=== PATIENT | female | born 1995 | race African-American/Black ===

== ENCOUNTER 2018-11-11 18:15 | Inpatient (IN) ==
[2018-11-11 19:45] LABS: Apearance,Urine Slightly Hazy (Clear); Bacteria,Urine Occasional /HPF (Few); Bilirubin,Urine Negative (Negative); Blood, Urine Negative (Negative); Glucose,Urine (UA) Negative (Negative); Ketones,Urine 5 mg/dL (Negative); Mucus,Urine Occasional /LPF (Occasional); Nitrite,Urine Negative (Negative); Protein,Urine Negative; RBC,Urine 9 /HPF (0-4); Squamous Epithelial Cell,Urine Occasional /HPF (0-10); Urine Color Yellow (Yellow); Urine Specific Gravity 1.012 (1.001-1.035); Urine Urobilinogen < 2.0 EU/DL (0.2-1.0); WBC,Urine 46 /HPF (0-6)
[2018-11-11 21:07] LABS: Barbiturates Screen,Urine Negative (Negative); Benzodiazepines Screen,Urine Negative (Negative); Cannabinoid Screen,Urine Negative (Negative); Opiate Screen,Urine Negative (Negative); Phencyclidine Screen,Urine Negative (Negative)
[2018-11-11] MEDS ORDERED: BUTORPHANOL 2 MG/ML VIAL IM PRN (21:09)
[2018-11-11] MEDS ORDERED: ONDANSETRON 4 MG/2 ML VIAL IM PRN (21:10)
[2018-11-11] MEDS ORDERED: BUTORPHANOL 1 MG/ML VIAL IM PRN (22:05)
[2018-11-11] MEDS ORDERED: CITRIC ACID/SODIUM CITRATE 30 ML UDCUP PO ONE (23:20)
[2018-11-11] MEDS ORDERED: FAMOTIDINE 20 MG/2 ML VIAL IV ONE (23:20)
[2018-11-11] MEDS ORDERED: LACTATED RINGERS 1,000 ML IV ONE (23:20)
[2018-11-11] MEDS ORDERED: NALOXONE 0.4 MG/ML VIAL IV PRN (23:20)
[2018-11-11] MEDS ORDERED: diphenhydrAMINE 50 MG/1 ML VIAL IV PRN (23:20)
[2018-11-11] MEDS ORDERED: ePHEDrine 50 MG/ML AMP IV PRN (23:20)
[2018-11-11] MEDS: LACTATED RINGERS 1,000 ML IV SCH (23:30)
[2018-11-11] MEDS ORDERED: OXYTOCIN/LR 20 UNIT/1,000 ML BAG IV SCH (23:30)
[2018-11-11] MEDS ORDERED: fentaNYL 2 MCG/ROPIV 0.2% EPID 100 ML EPIDURAL SCH (23:30)
[2018-11-11 23:35] LABS: Basophils % 0.4 % (0.0-0.8); Eosinophils # 0.1 10*3/uL (0.0-0.87); Eosinophils % 1.2 % (0.00-10.9); Hematocrit 30.9 VOL% (35.7-47.0); Hemoglobin 9.9 GM/DL (12.0-16.0); Immature Granulocytes % 1.3 %; Immature Granulocytes Absolute 0.14 #; Lymphocytes # 1.7 10*3/uL (1.4-4.0); Lymphocytes % 16.1 % (21.3-54.2); Mean Corpuscular Volume 78.2 FL (87-102); Mean Platelet Volume 12.7 FL (9.6-12.0); Monocytes % 9.3 % (1.7-12.7); Neutrophils % 71.7 % (38.7-73.9); Platelet Count 311 T/CUMM (130-400); Red Blood Count 3.95 MC/CUMM (3.8-5.5); Red Cell Distribution Width 16.9 % (9.3-17.3); White Blood Count 10.5 T/CUMM (4-12)
[2018-11-11 23:55] LABS: Albumin 2.6 G/DL (3.4-5.0); Bilirubin,Total 0.6 MG/DL (0.2-1.0); Calcium 9.1 MG/DL (8.5-10.1); Osmolality,Calculated 271.7 MOS/KG (273-304); Total Protein 7.4 G/DL (6.4-8.3); Uric Acid 4.3 MG/DL (2.6-6.0)
[2018-11-11] MEDS ORDERED: miSOPROStol 200 MCG TABLET ONE (23:59)
[2018-11-12] MEDS: LACTATED RINGERS 1,000 ML IV SCH (00:35)
[2018-11-12 00:53] LABS: HIV Antigen/Antibody Result Nonreactive (Nonreactive); Hepatitis B Surface Ag Quant < 0.10 Index; Hepatitis B Surface Ag Result Negative (Negative)
[2018-11-12] MEDS ORDERED: METHYLERGONOVINE 0.2 MG/1 ML AMP ONE (02:48)
[2018-11-12] MEDS: AMPICILLIN INJ 2,000 MG in SODIUM CHLORIDE 0.9% 100 ML IV SCH ×2 (05:42)
[2018-11-12 06:16] LABS: Cord Arterial Blood HCO3 24.7 MMOL/L
[2018-11-12 06:21] LABS: Cord Venous Blood HCO3 22.8 MMOL/L; Cord Venous Blood PO2 30.6
[2018-11-12] MEDS ORDERED: IBUPROFEN 800 MG TABLET PO PRN (09:28)
[2018-11-12] MEDS ORDERED: HYDROCORTISONE 2.5% RECTAL CREAM 30 GM TUBE TOP PRN (09:28)
[2018-11-12] MEDS ORDERED: RHO(D) IMMUNE GLOBULIN 300 MCG SYRINGE IM ONE (09:28)
[2018-11-12] MEDS ORDERED: oxyCODONE/ACETAMINOPHEN 5-325 MG TABLET PO PRN ×2 (09:28)
[2018-11-12] MEDS ORDERED: BISACODYL 10 MG SUPP RECTAL PRN (09:28)
[2018-11-12] MEDS ORDERED: BENZOCAINE 20%/MENTHOL 0.5% SPRAY 56 GM CAN TOP PRN (09:28)
[2018-11-12] MEDS ORDERED: WITCH HAZEL PADS 100/JAR TOP PRN (09:28)
[2018-11-12] MEDS ORDERED: DIPH/TET/ACEL PERT BOOSTER VACCINE 0.5 ML VIAL IM ONE (09:28)
[2018-11-12] MEDS ORDERED: MEASLES/MUMPS/RUBELLA VACCINE 0.5 ML VIAL SUBCUT ONE (09:28)
[2018-11-12] MEDS ORDERED: LANOLIN 50% CREAM 0.3 OZ TUBE TOP PRN (09:28)
[2018-11-12] MEDS ORDERED: OXYTOCIN/LR 20 UNIT/1,000 ML BAG IV ONE (09:28)
[2018-11-12] MEDS ORDERED: ACETAMINOPHEN 325 MG TABLET PO PRN (09:28)
[2018-11-12] MEDS ORDERED: ACETAMINOPHEN/CODEINE 120-12 MG/5 ML 12.5 ML UDCUP PO PRN (09:54)
[2018-11-12] MEDS: IBUPROFEN 100 MG/5 ML UDCUP PO PRN (10:18)
[2018-11-12] MEDS ORDERED: DOCUSATE SODIUM 100 MG CAPSULE PO SCH (21:00)
[2018-11-12] MEDS: DOCUSATE SODIUM 100 MG/10 ML UDCUP PO SCH (21:02)
[2018-11-13 05:32] LABS: Basophils # 0.1 10*3/uL (0.0-0.2); Basophils % 0.5 % (0.0-0.8); Eosinophils # 0.3 10*3/uL (0.0-0.87); Eosinophils % 2.3 % (0.00-10.9); Hematocrit 25.6 VOL% (35.7-47.0); Hemoglobin 8.1 GM/DL (12.0-16.0); Immature Granulocytes % 1.2 %; Immature Granulocytes Absolute 0.13 #; Lymphocytes # 2.1 10*3/uL (1.4-4.0); Lymphocytes % 19.6 % (21.3-54.2); Mean Corpuscular HGB Conc 31.6 GM/DL (32-36); Mean Platelet Volume 13.4 FL (9.6-12.0); Monocytes % 9.1 % (1.7-12.7); Neutrophils % 67.3 % (38.7-73.9); Platelet Count 287 T/CUMM (130-400); Red Blood Count 3.28 MC/CUMM (3.8-5.5); Red Cell Distribution Width 17.3 % (9.3-17.3); White Blood Count 10.8 T/CUMM (4-12)
[2018-11-13] MEDS: FERROUS SULFATE 325 MG TABLET PO SCH ×2 (09:54→20:50)
[2018-11-13] MEDS: DOCUSATE SODIUM 100 MG/10 ML UDCUP PO SCH ×2 (09:54→20:50)
[2018-11-13] MEDS: IBUPROFEN 100 MG/5 ML UDCUP PO PRN (15:50)
[2018-11-14] MEDS: FERROUS SULFATE 325 MG TABLET PO SCH (09:36)
[2018-11-14] MEDS: DOCUSATE SODIUM 100 MG/10 ML UDCUP PO SCH (09:36)
[2018-11-14] MEDS: IBUPROFEN 100 MG/5 ML UDCUP PO PRN (09:36)
[2018-11-14 15:54] VITALS: BP 102/64
== END 2018-11-14 16:50 | disposition home or self-care (01) | DRG 560 ==
LOC: N.OBOUT 18:15 → N.LD 18:21 → N.OB 11-12 09:46
PROVIDERS: ADMIT Obstetrics & Gynecology; ATTEND Obstetrics & Gynecology

== ENCOUNTER 2020-09-23 07:58 | Inpatient (IN) ==
[2020-09-23] MEDS ORDERED: MEPERIDINE 50 MG/1 ML VIAL IV PRN (08:59)
[2020-09-23] MEDS ORDERED: ONDANSETRON 4 MG/2 ML VIAL IV PRN (08:59)
[2020-09-23] MEDS ORDERED: BUTORPHANOL 2 MG/ML VIAL IV PRN (08:59)
[2020-09-23] MEDS ORDERED: OXYTOCIN/LR 20 UNIT/1,000 ML BAG IV SCH (09:00)
[2020-09-23] MEDS ORDERED: LACTATED RINGERS 1,000 ML IV SCH (09:00)
[2020-09-23 09:40] LABS: Basophils % 0.5 % (0.0-0.8); Eosinophils # 0.1 10*3/uL (0.0-0.87); Eosinophils % 1.5 % (0.00-10.9); Hematocrit 27.5 VOL% (35.7-47.0); Hemoglobin 8.2 GM/DL (12.0-16.0); Immature Granulocytes % 1.3 %; Lymphocytes # 1.4 10*3/uL (1.4-4.0); Lymphocytes % 18.3 % (21.3-54.2); Mean Corpuscular HGB Conc 29.8 GM/DL (32-36); Mean Platelet Volume 12.7 FL (9.6-12.0); Monocytes % 6.6 % (1.7-12.7); Neutrophils % 71.8 % (38.7-73.9); Platelet Count 282 T/CUMM (130-400); Red Blood Count 3.62 MC/CUMM (3.8-5.5); Red Cell Distribution Width 18.7 % (9.3-17.3); White Blood Count 7.6 T/CUMM (4-12)
[2020-09-23 10:14] LABS: Albumin 2.5 G/DL (3.4-5.0); Bilirubin,Total 0.8 MG/DL (0.20-1.00); Calcium 8.2 MG/DL (8.5-10.1); Osmolality,Calculated 274.4 MOS/KG (273-304); Potassium 3.3 MMOL/L (3.5-5.1); Total Protein 6.7 G/DL (6.4-8.2)
[2020-09-23] MEDS ORDERED: LACTATED RINGERS 1,000 ML IV ONE (10:50)
[2020-09-23] MEDS ORDERED: FAMOTIDINE 20 MG/2 ML VIAL IV ONE (10:50)
[2020-09-23] MEDS ORDERED: CITRIC ACID/SODIUM CITRATE 30 ML UDCUP PO ONE (10:50)
[2020-09-23] MEDS ORDERED: PROMETHAZINE 25 MG/1 ML VIAL IM ONE (10:51)
[2020-09-23] MEDS ORDERED: NALOXONE 0.4 MG/ML VIAL IV PRN (10:51)
[2020-09-23] MEDS ORDERED: hydrOXYzine HCL 25 MG/1 ML VIAL IM PRN (10:51)
[2020-09-23] MEDS ORDERED: ePHEDrine 50 MG/ML VIAL IV PRN (10:51)
[2020-09-23] MEDS ORDERED: diphenhydrAMINE 50 MG/1 ML VIAL IV PRN ×2 (10:51)
[2020-09-23] MEDS ORDERED: fentaNYL 2 MCG/ROPIV 0.2% EPID 100 ML EPIDURAL SCH (11:00)
[2020-09-23 13:59] LABS: Bilirubin,Urine Negative (Negative); Blood, Urine Negative (Negative); Glucose,Urine (UA) Negative (Negative); Ketones,Urine 20 mg/dL (Negative); Nitrite,Urine Negative (Negative); Protein,Urine Negative; Squamous Epithelial Cell,Urine Occasional /HPF (0-10); Urine Appearance CLEAR (Clear); Urine Color Straw (Yellow); Urine Specific Gravity 1.003 (1.001-1.035); Urine Urobilinogen < 2.0 EU/DL (0.2-1.0)
[2020-09-23 17:14] LABS: Barbiturates Screen,Urine Negative (Negative); Benzodiazepines Screen,Urine Negative (Negative); Cannabinoid Screen,Urine Negative (Negative); Opiate Screen,Urine Negative (Negative); Phencyclidine Screen,Urine Negative (Negative)
[2020-09-23] MEDS ORDERED: TRANEXAMIC ACID 1,000 MG/10 ML VIAL ONE (17:52)
[2020-09-23] MEDS ORDERED: OXYTOCIN/LR 20 UNIT/1,000 ML BAG IV ONE ×2 (17:52→20:50)
[2020-09-23] MEDS ORDERED: miSOPROStoL 200 MCG TABLET ONE (17:52)
[2020-09-23] MEDS ORDERED: METHYLERGONOVINE 0.2 MG/1 ML AMP ONE (17:53)
[2020-09-23] MEDS ORDERED: CARBOPROST TROMETHAMINE 250 MCG/ML AMP IM ONE (17:54)
[2020-09-23 18:28] LABS: Cord Venous Blood HCO3 22.6 MMOL/L; Cord Venous Blood PCO2 46.4 MMHG; Cord Venous Blood PO2 26.6
[2020-09-23] MEDS ORDERED: miSOPROStoL 200 MCG TABLET VAG ONE (18:54)
[2020-09-23] MEDS ORDERED: IBUPROFEN 100 MG/5 ML UDCUP PO PRN (23:39)
[2020-09-24] MEDS ORDERED: BENZOCAINE 20%/MENTHOL 0.5% SPRAY 56 GM CAN TOP PRN (00:54)
[2020-09-24] MEDS ORDERED: BISACODYL 10 MG SUPP RECTAL PRN (00:54)
[2020-09-24] MEDS ORDERED: RHO(D) IMMUNE GLOBULIN 300 MCG SYRINGE IM ONE (00:54)
[2020-09-24] MEDS ORDERED: WITCH HAZEL PADS 100/JAR TOP PRN (00:54)
[2020-09-24] MEDS ORDERED: LANOLIN 50% CREAM 0.3 OZ TUBE TOP PRN (00:54)
[2020-09-24] MEDS ORDERED: DIPH/TET/ACEL PERT BOOSTER VACCINE 0.5 ML VIAL IM ONE (00:54)
[2020-09-24] MEDS ORDERED: MEASLES/MUMPS/RUBELLA VACCINE 0.5 ML VIAL SUBCUT ONE (00:54)
[2020-09-24] MEDS ORDERED: HYDROCORTISONE 2.5% RECTAL CREAM 30 GM TUBE TOP PRN (00:54)
[2020-09-24] MEDS ORDERED: OXYTOCIN/LR 20 UNIT/1,000 ML BAG IV ONE (00:54)
[2020-09-24] MEDS ORDERED: ACETAMINOPHEN 325 MG TABLET PO PRN (00:54)
[2020-09-24] MEDS ORDERED: oxyCODONE/ACETAMINOPHEN 5-325 MG TABLET PO PRN ×2 (00:54)
[2020-09-24] MEDS ORDERED: IBUPROFEN 800 MG TABLET PO PRN (00:54)
[2020-09-24 05:53] LABS: Basophils # 0.1 10*3/uL (0.0-0.2); Basophils % 0.4 % (0.0-0.8); Eosinophils # 0.1 10*3/uL (0.0-0.87); Eosinophils % 0.8 % (0.00-10.9); Hematocrit 26.1 VOL% (35.7-47.0); Hemoglobin 8.3 GM/DL (12.0-16.0); Immature Granulocytes % 0.7 %; Immature Granulocytes Absolute 0.08 #; Lymphocytes # 1.7 10*3/uL (1.4-4.0); Lymphocytes % 15.4 % (21.3-54.2); Mean Corpuscular HGB Conc 31.8 GM/DL (32-36); Mean Corpuscular Volume 73.1 FL (87-102); Monocytes % 7.9 % (1.7-12.7); Neutrophils % 74.8 % (38.7-73.9); Platelet Count 242 T/CUMM (130-400); Red Blood Count 3.57 MC/CUMM (3.8-5.5); Red Cell Distribution Width 18.5 % (9.3-17.3); White Blood Count 11.2 T/CUMM (4-12)
[2020-09-24 06:43] LABS: Hypochromasia 1+; Microcytosis 2+
[2020-09-24 06:44] LABS: Platelet Estimate Normal
[2020-09-24] MEDS: DOCUSATE SODIUM 100 MG CAPSULE PO SCH ×2 (08:37→23:06)
[2020-09-25] MEDS: DOCUSATE SODIUM 100 MG CAPSULE PO SCH (09:03)
[2020-09-25 11:17] VITALS: BP 107/66
== END 2020-09-25 13:45 | disposition home or self-care (01) | DRG 560 ==
LOC: N.LDOUT 07:58 → N.LD 08:01 → N.OB 09-24 00:41
PROVIDERS: ADMIT Obstetrics & Gynecology; ATTEND Obstetrics & Gynecology